=== PATIENT | female | born 1980 | race Caucasian/White ===

== ENCOUNTER 2019-03-21 10:29 | Emergency (ER) | payer OTHER ==
[~2019-03-21] VITALS: Ht 152.4 cm; Wt 51.3 kg
[2019-03-21 10:36] VITALS: Ht 152.4 cm; Wt 51.3 kg
[2019-03-21 11:36] LABS: BASOPHIL % 0.6 % (0-2); PLATELET COUNT 263 x10^3mcL (130-400); RED CELL DISTRIBUTION WIDTH 13.1 % (11.5-14.5)
[2019-03-21 11:42] LABS: CALCIUM 9.6 mg/dL (8.5-10.1); CARBON DIOXIDE 26.2 mmol/L (21-32); CHLORIDE SERUM 106 mmol/L (98-107); CREATININE SERUM 0.9 mg/dL (0.6-1.0); GFR1 > 60 mL/min; GLUCOSE SERUM 98 mg/dL (74-106); POTASSIUM SERUM 3.9 mmol/L (3.5-5.1); SODIUM SERUM 143 mmol/L (136-145)
[2019-03-21 11:46] LABS: ALBUMIN 3.9 g/dL (3.4-5.0); ALKALINE PHOSPHATASE 72 U/L (46-116); ALT/SGPT 29 U/L (14-59); AST/SGOT 9 U/L (15-37); BILIRUBIN TOTAL 0.67 mg/dL (0.20-1.00); TOTAL PROTEIN, SERUM 7.9 g/dL (6.4-8.2)
[2019-03-21 12:34] VITALS: BP 104/71
== END 2019-03-21 12:34 | disposition home or self-care (01) ==
LOC: ED 10:29
PROVIDERS: Specialist
DX: F41.9 Anxiety disorder, unspecified (principal); R07.89 Other chest pain; Z91.013 Allergy to seafood
CPT/HCPCS: 36415; 82962; Q0092